=== PATIENT | male | born 1985 | race Caucasian/White ===

== ENCOUNTER 2016-11-22 20:18 | Emergency (ER) | payer OTHER ==
--- NOTE | ~2016-11-22 | CT16 ---
[facility] A Service of [facility] RADIOLOGY TEXT RESULTS PATIENT: ADELE MORRIS LOCATION: SED : 85 UNIT #: [id number] AGE: [address]: ALVARO GILLILAND PA-C SEX: M ORDER DR: [id number] [address] [address] [id number] E MR#: [id number] Acc #: [id number] NAME: ADELE MORRIS : 1985 SEX: M STUDY DATE/TIME: 11/22/2016 21:31 UNIT: SED ROOM: STUDY DESCRIPTION: CT Angio Chest for PE Attending Physician: Alvaro Gilliland Pa-C Ordering Physician: Physician Non-Staff MEDICAL IMAGING REPORT This report is preliminary unless electronic signature is present. EXAM CTA chest with contrast PE protocol, 11/22/2016 HISTORY 31-year-old male with shortness of breath beginning today. COMPARISON None TECHNIQUE Helical scan performed through the chest following the timed bolus administration of IV contrast per PE protocol. Coronal 3-D MIP reconstructions. Sagittal reformatted images. This CT exam was performed with one or more of the following radiation dose reduction techniques: automatic exposure control, adjustment of mA and/or kV according to patient size, and iterative reconstruction. FINDINGS There is adequate opacification of the pulmonary arteries with no filling defects noted. Thoracic aorta is normal in course and caliber without dissection. Heart size normal. No pericardial effusion. No pleural effusions. No pneumothorax. No parenchymal infiltrates. Incidental scanning through the upper abdomen is unremarkable. No acute bony abnormality. IMPRESSION 1. Negative for pulmonary emboli. 2. Negative for thoracic aortic aneurysm/dissection. 3. No acute pulmonary process. [facility] A Service of [facility] RADIOLOGY TEXT RESULTS PATIENT: ADELE MORRIS LOCATION: SED : 85 UNIT #: [id number] AGE: [address]: ALVARO GILLILAND PA-C SEX: M ORDER DR: Dictated by... Arjun Dooley M.D. THIS IS AN ELECTRONICALLY VERIFIED REPORT Arjun Dooley M.D. at 11/23/2016 11:30 PM MADISYN/dex TD: 11/23/2016 11:49 JOB #: [id number] MEDICAL IMAGING REPORT Page 1 of 1
--- NOTE | ~2016-11-22 | EKG ---
PATIENT: ADELE MORRIS UNIT #: [id number] Ventricular Rate: 112 BPM Atrial Rate: 112 BPM P-R Interval: 174 ms QRS Duration: 92 ms Q-T Interval: 340 ms QTC Calculation(Bezet): 464 ms P Pelham: 75 degrees Calculated R Pelham: -75 degrees Calculated T Pelham: 68 degrees Diagnosis Line: Sinus tachycardia Diagnosis Line: Biatrial enlargement Diagnosis Line: Left anterior fascicular block Diagnosis Line: Abnormal ECG Diagnosis Line: No previous ECGs available Diagnosis Line: Confirmed by KERVIN NEWMAN MD ([id number]) on Diagnosis Line: 12/12/2016 7:10:45 AM INTERPRETING MD: DEBBIE
--- NOTE | ~2016-11-22 | CT2 ---
[facility] A Service of [facility] RADIOLOGY TEXT RESULTS PATIENT: ADELE MORRIS LOCATION: SED : 85 UNIT #: [id number] AGE: [address]: ALVARO GILLILAND PA-C SEX: M ORDER DR: [id number] [address] [address] [id number] E MR#: [id number] Acc #: [id number] NAME: ADELE MORRIS : 1985 SEX: M STUDY DATE/TIME: 11/22/2016 21:31 UNIT: SED ROOM: STUDY DESCRIPTION: CT Abd and Pelv W Cont Attending Physician: Alvaro Gilliland Pa-C Ordering Physician: Staff Doctor Not On MEDICAL IMAGING REPORT This report is preliminary unless electronic signature is present. EXAM Abdomen and pelvis CT with contrast HISTORY Abdominal pain. Bad pain left side of stomach with trouble breathing. Left upper quadrant abdominal pain for 2 hours prior to arrival. No cancer history or trauma history provided. COMMENT CT of the abdomen and pelvis performed axial plane during the intravenous administration of 100 mL of Isovue-370. This CT exam was performed with one or more of the following radiation dose reduction techniques: automatic exposure control, adjustment of mA and/or kV according to patient size, and iterative reconstruction. There is some density within the colon which could be medication or previous oral contrast administration. No prior. There is a separate PE protocol chest CT from the same day and please refer to that report for description of lung bases. The liver, gallbladder, pancreas, adrenal glands, and kidneys are within normal limits. There is an area of somewhat geographic diminished attenuation at the lower pole of the spleen which is concerning for an infarct. Please evaluate further clinically for a possible thromboembolus or risk factors or a splenic infarct. Please exclude any history of trauma. None is provided to me and there is no perisplenic fluid. It appears that the splenic artery is patent on review of the 3D coronal MIP reformatted imaging of the accompanying CT chest PE protocol. There is no abdominal aortic aneurysm. No aortic dissection is appreciated. Assessment of the pelvis shows moderate stool in the colon to the level of the rectum. Please correlate for clinical evidence of constipation. The [facility] A Service of [facility] RADIOLOGY TEXT RESULTS PATIENT: ADELE MORRIS LOCATION: SED : 85 UNIT #: [id number] AGE: [address]: ALVARO GILLILAND PA-C SEX: M ORDER DR: appendix is radiographically unremarkable. There is no free intraperitoneal air. The patient has a transitional lumbosacral vertebral body. IMPRESSION 1. 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 This would account for left upper quadrant pain described by the patient but the etiology is not clear on this scan. Please evaluate further clinically. The area of distinct low-attenuation measures about 3.7 cm AP dimension, 2.5 cm mL dimension, and 1.4 cm SI dimension. Otherwise, there is mild heterogeneity to the enhancement pattern of the spleen. 2. A moderate amount of colonic stool to the level of the rectum. Please correlate for any clinical concern for constipation. 3. See the separate CT chest PE protocol report which will be dictated separately. Dictated by... Danielle Bonilla M.D. THIS IS AN ELECTRONICALLY VERIFIED REPORT Danielle Bonilla M.D. at 11/23/2016 8:51 PM AMY/roque TD: 11/23/2016 12:41 JOB #: [id number] MEDICAL IMAGING REPORT Page 1 of 1
[~2016-11-22 20:18] MED LIST: FLEXERIL10 MG PO; NO MEDICATIONS; PEPCID40 MG PO; PREDNISONE PO; SUBOXONE 4 MG-1 EACH SL; VICODIN PO; VOLTAREN75 MG PO
[2016-11-22 20:59] LABS: BASOPHIL% 0.7 % (0-2.5); EOSINOPHIL% 0.7 % (0.0-7.0); HEMATOCRIT 43.5 % (38.0-50.0); HEMOGLOBIN 14.7 gm/dL (13.0-16.0); LYMPHOCYTE# 1.7 X10e3 (1.0-3.5); LYMPHOCYTE% 23.7 % (17.0-45.0); MEAN CELL VOLUME 86.6 FL (83-96); MEAN CORPUSCULAR HEMOGLOBIN 29.3 PG (28-34); MEAN CORPUSCULAR HGB CONC 33.8 g/dL (30-36); MEAN PLATELET VOLUME 7.3 FL (6.5-11.5); MONOCYTE# 0.5 X10e3 (0-1.0); MONOCYTE% 7.6 % (3.0-12.0); NEUTROPHIL# 4.7 X10e3 (1.5-7.1); NEUTROPHIL% 67.3 % (40-75); PLATELET COUNT 288 X10e3 (140-420); RED BLOOD COUNT 5.02 X10e (3.90-5.60); RED CELL DISTRIBUTION WIDTH 13.4 % (11.0-15.5)
[2016-11-22 21:01] LABS: DIFF IND NO
[2016-11-22 21:15] LABS: POC - CKMB 2.5 ng/mL (0.0-7.9)
[2016-11-22 21:16] LABS: POC - TROPONIN <0.05 ng/mL (<=0.05)
[2016-11-22 21:18] LABS: BILIRUBIN, DIRECT 0.1 mg/dL (0.0-0.2); BILIRUBIN,INDIRECT 0.7 mg/dL (0.0-0.9); BILIRUBIN,TOTAL 0.8 mg/dL (0.2-2.0); BUN/CREATININE RATIO 17.5; CALCIUM SERUM 9.5 mg/dL (8.4-10.2); CREATININE SERUM 0.8 mg/dL (0.6-1.4); GLOM FILT RATE Estimated 119.1 mL/min (>60); PROTEIN TOTAL SERUM 7.4 g/dL (6.0-8.3)
[2016-11-22 23:32] LABS: URINE SOURCE CLEAN CATCH
[2016-11-22 23:34] LABS: URINE APPEARANCE CLEAR; URINE BILIRUBIN NEG (NEG); URINE BLOOD NEG (NEG); URINE COLOR YELLOW; URINE GLUCOSE NEG (NORM); URINE KETONE NEG (NEG); URINE LEUKOCYTE ESTERASE NEG (NEG); URINE NITRATE NEG (NEG); URINE PROTEIN NEG (NEG); URINE UROBILINOGEN 0.2 MG/DL (NORM)
[2016-11-22 23:36] LABS: MICRO INDICATED? NO
[2016-11-22 23:44] LABS: AMPHETAMINE NEG (NEG); BARBITURATES NEG (NEG); BENZODIAZEPINES NEG (NEG); COCAINE NEG (NEG); MARIJUANA NEG (NEG); OPIATES NEG (NEG); TRICYCLIC ANTIDEPRESSANTS NEG (NEG); U METHADONE NEG (NEG)
== END 2016-11-23 01:45 | disposition hospice, home (50) ==
LOC: SED 20:18
PROVIDERS: Physician Assistant
DX: D73.5 Infarction of spleen (principal); R00.0 Tachycardia, unspecified; Z88.0 Allergy status to penicillin
CPT/HCPCS: 36415; 71275; 74177; 80048; 80076; 80307; 81003; 82553; 83690; 83874; 84484; 85025; 93005; 99285; Q9967